=== PATIENT | female | born 1980 | race African-American/Black ===

== ENCOUNTER 2019-10-13 14:08 | Emergency (ER) | payer BC, OTHER ==
[~2019-10-13] VITALS: Ht 154.9 cm; Wt 52.0 kg
[2019-10-13 18:47] VITALS: BP 149/93
== END 2019-10-13 21:16 | disposition home or self-care (01) ==
LOC: ER 14:08
DX: F41.9 Anxiety disorder, unspecified (principal); R05 Cough; R04.2 Hemoptysis; R07.9 Chest pain, unspecified; Z86.11 Personal history of tuberculosis
CPT/HCPCS: 71045; 99283